=== PATIENT | female | born 1990 | race Two or more races ===

== ENCOUNTER 2017-01-13 08:58 | Observation (INO) | payer SELFPAY ==
[~2017-01-13 08:58] MED LIST: FOLIC ACID1 M1 PO; PERCOCET 5-3251 EACH PO; PRENATAL-U CAPS1 CAP PO; TYLENOL325 M2 PO
[2017-01-13 11:12] LABS: ALB/GLOB RATIO 0.8 (0.8-2.0); ALKALINE PHOSPHATASE 110 U/L (33-138); ALT/SGPT 24 U/L (12-78); ANION GAP 11 mmol/L (0-20); AST/SGOT 14 U/L (10-40); BILIRUBIN,TOTAL 0.6 mg/dl (0-1.5); BLOOD UREA NITROGEN 10 mg/dl (6-24); CALCIUM 8.2 mg/dl (8.5-10.5); CARBON DIOXIDE-VENOUS 26 mmol/L (22-32); CHLORIDE 109 mmol/l (96-110); CREATININE 0.69 mg/dl (0.50-1.10); SODIUM 142 mmol/L (135-145); eGFR VALUE FOR BLACK >90 mL/Min
[2017-01-13 11:20] LABS: ALBUMIN 3.1 g/dl (3.5-5.0); GLUCOSE 69 mg/dL (70-110)
[2017-01-13 12:01] LABS: BASO % 0.6 % (0-2); EOS % 1.1 % (0-7); EOSINOPHIL ABSOLUTE COUNT 0.1 tho/cmm (0.0-0.7); HGB-HEMOGLOBIN 11.5 gm/dl (12.0-15.5); IMMATURE GRANULOCYTES ABSOLUTE 0.03 tho/cmm (0-0.03); IMMATURE GRANULOCYTES PERCENT 0.5 % (0-0.3); LYMPH % 44.9 % (20-45); LYMPH ABSOLUTE COUNT 2.8 tho/cmm (0.8-4.5); MCH (MEAN CORPUSCULAR HGB) 33.2 pg (28.0-32.0); MCHC MEAN CORPUSCULAR HGB CONC 32.9 % (32.0-36.0); MCV (MEAN CELL VOLUME) 101.2 fl (82.0-96.0); MEAN PLATELET VOLUME 11.6 cmc (9.4-12.4); MONO % 8.8 % (0-12); MONOCYTE ABSOLUTE COUNT 0.6 tho/cmm (0.0-1.2); NEUTROPHIL ABSOLUTE COUNT 2.8 tho/cmm (1.6-8.0); NEUTROPHIL-AUTOMATED 2.8 tho/cmm (1.6-8.0); NEUTROPHILS % 44.1 % (40-80); PLATELET COUNT 250 tho/cmm (150-450); RED BLOOD COUNT 3.46 mil/cmm (4.00-5.20); RED CELL DISTRIBUTION WIDTH 13.9 % (12.4-16.4); WHITE BLOOD COUNT 6.3 tho/cmm (4.0-10.0)
[2017-01-13 12:14] LABS: URINE PRT/CR RATIO 0.13 Ratio (0.0-0.20)
[2017-01-13] MEDS ORDERED: IBUPROFEN800 M1 PO ×2 (17:11→17:12)
--- NOTE | 2017-01-13 17:12 | NUR ---
CONSULT: PUMP SET UP WITH 24MM FLANGES. INSTRUCTED TO PUMP EVERY 3 HOURS, GAVE GUAMANIAN PUMPING LOG. TAUGHT INITIATION VS MAINTAINANCE PHASE. OBTAINS 15CC EVERY 3 HOURS ON DAY 13 POST .
== END 2017-01-13 17:42 ==
LOC: OBGD 08:58 → OBGE 09:02
PROVIDERS: ADMIT Obstetrics & Gynecology
DX: O90.89 Other complications of the puerperium, not elsewhere classified (principal); R51 Headache; R03.0 Elevated blood-pressure reading, without diagnosis of hypertension; Z79.899 Other long term (current) drug therapy